=== PATIENT | male | born 2000 | race Caucasian/White ===

== ENCOUNTER 2021-03-22 23:05 | Emergency (ER) | payer OTHER, MEDICAID, SELFPAY ==
[2021-03-22 23:57] VITALS: BP 110/47; PULSE 78; RESP 18; TEMP 36.9; O2SAT 98; BMI 21.9
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
--- NOTE | 2021-03-23 00:41 | PC.NURSE ---
pt a&o no sob or chest pain, Reviewed discharge instructions and medication. pt verbalized understanding. No distress at discharge. pt discharged home.
== END 2021-03-23 00:42 | disposition home or self-care (01) ==
PROVIDERS: Emergency Provider Emergency Medicine
DX: S39.92XA Unspecified injury of lower back, initial encounter (principal); V43.62XA Car passenger injured in collision with other type car in traffic accident, initial encounter; Y93.9 Activity, unspecified; Y92.410 Unspecified street and highway as the place of occurrence of the external cause; Y99.9 Unspecified external cause status; Z79.899 Other long term (current) drug therapy
CPT/HCPCS: 99282

== ENCOUNTER 2023-06-18 04:39 | Emergency (ER) | payer MEDICAID, SELFPAY ==
--- NOTE | ~2023-06-18 | XR_ITS ---
EXAMINATION: XR HAND, RIGHT CLINICAL INFORMATION: Trauma. Pain. COMPARISON: None available. TECHNIQUE: PA, lateral, and oblique views of the right hand. FINDINGS: The bone mineralization is normal. There is a minimally displaced fracture through the distal fifth metacarpal. The joint spaces are maintained. There is an apparent old fracture through the ulnar styloid. No other fracture is seen. There is soft tissue swelling along the dorsum of the hand. XR/XR hand RT 2V IMPRESSION: Minimally displaced fracture through the distal fifth metacarpal.
[2023-06-18 04:41] VITALS: BP 111/72; PULSE 94; RESP 12; TEMP 36.6; O2SAT 100; BMI 22.3
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
[2023-06-18] MEDS: Ibuprofen 600 MG TABLET PO (07:32)
--- NOTE | 2023-06-18 07:45 | PC.NURSE ---
patient a&ox3, vss, pt has + csm/pulses, 3/10 pain, pt medicated for pain will continue to monitor.
== END 2023-06-18 07:46 | disposition home or self-care (01) ==
PROVIDERS: Emergency Provider Emergency Medicine
DX: S62.91XA Unspecified fracture of right hand, initial encounter for closed fracture (principal); M79.641 Pain in right hand; X58.XXXA Exposure to other specified factors, initial encounter; Y93.9 Activity, unspecified; Y92.9 Unspecified place or not applicable; Y99.8 Other external cause status
CPT/HCPCS: 29125; 73120; 99284

== ENCOUNTER 2023-06-28 06:28 | Outpatient (REF) | payer MEDICAID, SELFPAY ==
--- NOTE | ~2023-06-28 | XR_ITS ---
EXAMINATION: XR HAND, RIGHT CLINICAL INFORMATION: Pain. COMPARISON: None available. TECHNIQUE: PA, lateral, and oblique views of the right hand. FINDINGS: There is stable alignment of a minimally nondisplaced fracture of the fifth metacarpal neck and head. No dislocation is seen. The proximal and distal carpal rows are intact. An old, healed ulnar styloid fracture is redemonstrated. There is no abnormal bone erosion. No focal soft tissue swelling, gas or foreign body is seen. XR/XR hand RT min 3V IMPRESSION: A minimally displaced fracture is redemonstrated of the distal fifth metacarpal bone, in stable alignment. No significant new callus formation is noted.
== END 2023-06-28 06:29 | disposition home or self-care (01) ==
LOC: HO.HOSX 06:28
PROVIDERS: Visit Provider Physician Assistant
DX: S62.339A Displaced fracture of neck of unspecified metacarpal bone, initial encounter for closed fracture (principal); W22.09XA Striking against other stationary object, initial encounter; Y93.9 Activity, unspecified; Y92.9 Unspecified place or not applicable; Y99.9 Unspecified external cause status
CPT/HCPCS: 73130; 99212

== ENCOUNTER 2023-06-28 08:24 | Outpatient (AMB) | payer MEDICAID, SELFPAY ==
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
[2023-06-28 08:39] VITALS: BMI 22.3
== END 2023-06-28 09:44 | disposition home or self-care (01) ==
PROVIDERS: Visit Provider Physician Assistant
DX: S62.364A Nondisplaced fracture of neck of fourth metacarpal bone, right hand, initial encounter for closed fracture (principal)
CPT/HCPCS: 99203

== ENCOUNTER 2023-08-09 08:08 | Outpatient (REF) | payer MEDICAID, SELFPAY ==
--- NOTE | ~2023-08-09 | XR_ITS ---
EXAMINATION: XR HAND, RIGHT CLINICAL INFORMATION: Pain in right hand. COMPARISON: 06/28/2023, 06/18/2023. TECHNIQUE: PA, lateral, and oblique views of the right hand. FINDINGS: Redemonstration of a minimally nondisplaced fracture of the fifth metacarpal neck and head with increased bridging callus along the fracture line. Alignment is stable. Redemonstration of old healed ulnar styloid fracture. XR/XR hand RT min 3V IMPRESSION: Healing fracture of the fifth metacarpal bone with stable alignment and increased bridging callus formation.
== END 2023-08-09 08:09 | disposition home or self-care (01) ==
LOC: HO.HOSX 08:08
PROVIDERS: Visit Provider Physician Assistant
DX: S62.336D Displaced fracture of neck of fifth metacarpal bone, right hand, subsequent encounter for fracture with routine healing (principal)
CPT/HCPCS: 73130; 99212

== ENCOUNTER 2023-08-09 09:09 | Outpatient (AMB) | payer MEDICAID, SELFPAY ==
--- NOTE | 2023-08-09 09:35 | A.OFFVIS_ITS ---
Intake Vital Signs 08/09/23 09:37 Height 5 ft 4 in Weight 130 lb BMI 22.3 Intake Visit Reasons: ov-Right hand fracture-DOI 06/18/23 Intake Note: Td morrell 23 year old male presents today for a follow up of right hand fracture, DOI 06/18/23. Xrays updated. Patient reports he is doing well, he denies any pain or discomfort. He has no concerns today. Allergies No Known Allergies Allergy (Verified 06/28/23 08:35) HPI ov-Right hand fracture-DOI 06/18/23 HPI Details 23-year-old male who returns to the [facility] today for a follow-up of right-hand fracture, 06/18/23. He states he has no pain or discomfort and is doing well overall. He has been using the brace as instructed. He has no concerns today. [facility] Social History Patient Tobacco Use Status: Never used Tobacco Substance Use Type: Marijuana Current occupational status: employed Current occupation: [email or web address], right hand dominant Review of Systems Const All systems reviewed & are unremarkable except as noted in HPI and below Physical Exam Vital Signs: BMI result Body Mass Index 22.3 Const General: cooperative and no acute distress Orientation/consciousness: patient oriented x3 Resp Effort & Inspection: normal respiratory effort and able to speak in complete sentences Cardio Peripheral pulses: Peripheral pulses 2+ throughout Neuro General: patient oriented x3 Extrem Other: Right hand: Normal to inspection. No pain with palpation. There is no tenderness over the neck of the 5th metacarpal. There is no scissoring or angulation of the small finger. He can fully extend and bring his hand to a closed fist. Results Reviewed Results Reviewed: Xrays were obtained in the office today and personally reviewed by me of the right hand show nondisplaced 5th metacarpal neck fx with interval healing, no angulation or shortening. Assessment & Plan Assessment & Plan (1) Мария's metacarpal fracture, neck, closed: Code(s): S62.339A - Displaced fracture of neck of unspecified metacarpal bone, initial encounter for closed fracture Qualifiers: Encounter type: subsequent encounter Fracture healing: with routine healing Qualified Code(s): S62.339D - Displaced fracture of neck of unspecified metacarpal bone, subsequent encounter for fracture with routine healing Plan He can discontinue using the brace. He can increase activity as tolerated however he should avoid impact activities and continue with current light duty work restrictions. He can see me back in 4 weeks for a follow-up and potential return to work full duty, sooner if needed. Orders: Orders XR hand RT min 3V Today M79.641 - Pain in right hand Patient Instructions: Scribed for Mariluz Hogue PA-C, by Rene Salas medical review coordinator, on 08/09/2023 at 9:30 AM EST. I, Mariluz Hogue PA-C, have personally reviewed and agree with the information entered by the scribe. Coding Level of Care Code Global (29127) Diagnoses Closed boxer's fracture with routine healing, subsequent encounter S62.339D Encounter type: subsequent encounter Fracture healing: with routine healing
[2023-08-09 09:37] VITALS: BMI 22.3
== END 2023-08-09 09:45 | disposition home or self-care (01) ==
PROVIDERS: Visit Provider Physician Assistant
DX: S62.336A Displaced fracture of neck of fifth metacarpal bone, right hand, initial encounter for closed fracture (principal)
CPT/HCPCS: 99213

== ENCOUNTER 2023-09-06 08:19 | Outpatient (REF) | payer MEDICAID, SELFPAY ==
--- NOTE | ~2023-09-06 | XR_ITS ---
EXAMINATION: XR HAND, RIGHT CLINICAL INFORMATION: Pain in right hand COMPARISON: Multiple prior radiograph most recent July 2023 and most remote May 2023. TECHNIQUE: PA, lateral, and oblique views of the right hand. FINDINGS: There is mild deformity of the distal fifth metacarpal. The previously noted fracture is barely conspicuous indicative of progressing healing The remaining bones joints and soft tissues are unremarkable. XR/XR hand RT min 3V IMPRESSION: Healing fracture of the distal fifth metacarpal.
== END 2023-09-06 08:20 | disposition home or self-care (01) ==
LOC: HO.HOSX 08:19
PROVIDERS: Visit Provider Physician Assistant
DX: M79.641 Pain in right hand (principal); S62.339D Displaced fracture of neck of unspecified metacarpal bone, subsequent encounter for fracture with routine healing; X58.XXXD Exposure to other specified factors, subsequent encounter
CPT/HCPCS: 73130; 99212

== ENCOUNTER 2023-09-06 08:39 | Outpatient (AMB) | payer MEDICAID, SELFPAY ==
--- NOTE | 2023-09-06 09:05 | A.OFFVIS_ITS ---
Intake Visit Reasons: ov-Right hand fracture-DOI 06/18/23 Intake Note: Td morrell 23 year old male presents today for a follow up of right hand fracture, DOI 06/18/23. Patient reports he is doing well, he denies any pain. He is requesting to return back to work with no restrictions. Allergies No Known Allergies Allergy (Verified 09/06/23 09:06) HPI HPI ov-Right hand fracture-DOI 06/18/23: Details: 23-year-old male who returns to the office today for a follow-up of right-hand fracture, 06/18/23. He states he has no pain and is doing well overall. He would like to return to work today with no restrictions. He has no other concerns today. [facility] Social History Patient Tobacco Use Status: Never used Tobacco Substance Use Type: Marijuana Current occupational status: employed Current occupation: [employer], right hand dominant Review of Systems Const All systems reviewed & are unremarkable except as noted in HPI and below Physical Exam Const General: cooperative and no acute distress Orientation/consciousness: patient oriented x3 Resp Effort & Inspection: normal respiratory effort and able to speak in complete sentences Cardio Peripheral pulses: Peripheral pulses 2+ throughout Neuro General: patient oriented x3 Extrem Other: Right hand: Normal to inspection. No pain with palpation. There is no tenderness over the neck of the 5th metacarpal. There is no scissoring or angulation of the small finger. He can fully extend and bring his hand to a closed fist. Assessment & Plan Assessment & Plan (1) Мария's metacarpal fracture, neck, closed: Code(s): S62.339A - Displaced fracture of neck of unspecified metacarpal bone, initial encounter for closed fracture Category: Medical Qualifiers: Encounter type: subsequent encounter Fracture healing: with routine healing Qualified Code(s): S62.339D - Displaced fracture of neck of unspecified metacarpal bone, subsequent encounter for fracture with routine healing Plan He will resume all activities with no restrictions. He will return to work today without restrictions and if symptoms persist or worsens, patient will contact the office, otherwise follow-up as needed. Orders: Orders XR hand RT min 3V 09/06/23 M79.641 - Pain in right hand Patient Instructions: Scribed for Ta-Ritika Meuse, PA-C, by Rene Salas emergency medical service manager, on 09/06/2023 at 9:00 AM EST.? I, Mariluz Hogue PA-C, have personally reviewed and agree with the information entered by the scribe. Coding Level of Care Code Global (64779) Diagnoses Closed boxer's fracture with routine healing, subsequent encounter S62.339D Encounter type: subsequent encounter Fracture healing: with routine healing
== END 2023-09-06 10:13 | disposition home or self-care (01) ==
PROVIDERS: Visit Provider Physician Assistant
DX: S62.367A Nondisplaced fracture of neck of fifth metacarpal bone, left hand, initial encounter for closed fracture (principal)
CPT/HCPCS: 99213

== ENCOUNTER 2023-12-04 20:45 | Emergency (ER) | payer MEDICAID, SELFPAY ==
--- NOTE | ~2023-12-04 | CT_ITS ---
EXAMINATION: CT HEAD WITHOUT CONTRAST CT CERVICAL SPINE WITHOUT CONTRAST CLINICAL INFORMATION: Injury. Pain. COMPARISON: None available. TECHNIQUE: Contiguous axial imaging was performed from the skull base to vertex without intravenous administration of contrast. This CT examination was performed using dose optimization techniques as appropriate, variously including the following: *Automated exposure control *Adjustment of mA and/or kV according to patient size (this includes techniques or standardized protocols for targeted exams where dose is matched to indication/reason for exam; i.e. extremities or head) *Use of iterative reconstruction technique DLP: 847 mGy-cm FINDINGS: The lateral, third and fourth ventricles are normally outlined. The cortical sulci and basal cisterns are normally outlined as well. There is no acute territorial defect, hemorrhage or midline shift. The extra-axial spaces are unremarkable. Calvarium/scalp: Intact. Maxillofacial sinuses and mastoids: Clear as visualized. Cervical spine: The alignment is normal. Disc spaces are maintained. The spinal canal and neuroforamen are patent. The bone fixation is normal. There is no fracture. The soft tissues are unremarkable. The visualized upper lung soriano are clear. CT/CT cervical spine wo IV con IMPRESSION: 1. No acute intracranial pathology. 2. No acute fracture or malalignment of the cervical spine.
--- NOTE | ~2023-12-04 | XR_ITS ---
EXAMINATION: XR SHOULDER, LEFT CLINICAL INFORMATION: Pain status-post fall. COMPARISON: None available. TECHNIQUE: AP external rotation and lateral views of the left shoulder are submitted. FINDINGS: The bones and soft tissues are normal. No fracture. Glenohumeral and acromioclavicular alignment is anatomic with normal joint space. No abnormal soft tissue calcifications. XR/XR shoulder LT min 2V IMPRESSION: Normal left shoulder.
--- NOTE | ~2023-12-04 | CT_ITS ---
EXAMINATION: CT HEAD WITHOUT CONTRAST CT CERVICAL SPINE WITHOUT CONTRAST CLINICAL INFORMATION: Injury. Pain. COMPARISON: None available. TECHNIQUE: Contiguous axial imaging was performed from the skull base to vertex without intravenous administration of contrast. This CT examination was performed using dose optimization techniques as appropriate, variously including the following: *Automated exposure control *Adjustment of mA and/or kV according to patient size (this includes techniques or standardized protocols for targeted exams where dose is matched to indication/reason for exam; i.e. extremities or head) *Use of iterative reconstruction technique DLP: 847 mGy-cm FINDINGS: The lateral, third and fourth ventricles are normally outlined. The cortical sulci and basal cisterns are normally outlined as well. There is no acute territorial defect, hemorrhage or midline shift. The extra-axial spaces are unremarkable. Calvarium/scalp: Intact. Maxillofacial sinuses and mastoids: Clear as visualized. Cervical spine: The alignment is normal. Disc spaces are maintained. The spinal canal and neuroforamen are patent. The bone fixation is normal. There is no fracture. The soft tissues are unremarkable. The visualized upper lung soriano are clear. CT/CT head/brain wo IV con IMPRESSION: 1. No acute intracranial pathology. 2. No acute fracture or malalignment of the cervical spine.
[2023-12-04 20:51] VITALS: BP 124/67; PULSE 73; RESP 16; TEMP 36.8; O2SAT 97; BMI 20.2
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
--- NOTE | 2023-12-04 21:23 | MHC.EDTECH ---
Cleaned Pt's face and flushed L eyebrow lac
[2023-12-04 22:00] VITALS: BP 126/76; PULSE 56; RESP 14; TEMP 36.6; O2SAT 98
--- NOTE | 2023-12-04 22:38 | PC.NURSE ---
pt now reporting lower back pain, head/neck pain/soreness, left shoulder pain. MD Crenshaw aware. pt still in room waiting to be seen by ED provider.
[2023-12-04] MEDS: Ibuprofen 400 MG TABLET PO (22:42)
[2023-12-04] MEDS: Acetaminophen 325 MG TABLET 650 MG PO (22:42)
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
[2023-12-04] MEDS: Lidocaine HCl 1 % 10 ML VIAL INFILTRATI (23:23)
[2023-12-04 23:24] VITALS: BP 119/70; PULSE 60; RESP 14; TEMP 36.8; O2SAT 98
[2023-12-05 00:18] VITALS: BP 119/70; PULSE 60; RESP 14; TEMP 36.8; O2SAT 98
== END 2023-12-05 00:25 | disposition home or self-care (01) ==
PROVIDERS: Emergency Provider Emergency Medicine
DX: S01.112A Laceration without foreign body of left eyelid and periocular area, initial encounter (principal); M54.2 Cervicalgia; R51.9 Headache, unspecified; M25.512 Pain in left shoulder; W05.1XXA Fall from non-moving nonmotorized scooter, initial encounter; Y93.89 Activity, other specified; Y92.89 Other specified places as the place of occurrence of the external cause; Y99.8 Other external cause status
CPT/HCPCS: 12015; 70450; 72125; 73030; 99284

== ENCOUNTER 2023-12-13 07:10 | Emergency (ER) | payer MEDICAID, SELFPAY ==
[2023-12-13 07:36] VITALS: BP 105/64; PULSE 53; RESP 16; TEMP 36.9; O2SAT 99; BMI 19.1
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
[2023-12-13 09:14] VITALS: BP 105/64; PULSE 53; RESP 16; TEMP 36.9; O2SAT 99
== END 2023-12-13 09:14 | disposition home or self-care (01) ==
PROVIDERS: Emergency Provider Emergency Medicine
DX: Z48.02 Encounter for removal of sutures (principal)
CPT/HCPCS: 99282